=== PATIENT | male | born 1930 | race Caucasian/White ===

== ENCOUNTER 2018-08-23 14:18 | Emergency (ER) | payer BC ==
--- NOTE | 2018-08-23 14:27 | ER Report ---
History and Physical Time Seen By MD: 14:27 (SELVIN ENAMORADO DO) HPI/ROS CHIEF COMPLAINT: Shortness breath, chest discomfort HISTORY OF PRESENT ILLNESS: Patient is an 88-year-old male here with complaints of exertional dyspnea, chest discomfort which is midsternal, sharp in distribution, intermittent worsened with exertion. 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 Denies prior history of coronary artery disease but he does have a history of hypertension, hyperlipidemia on a statin and metoprolol. Patient started on Thursday with chest pains worsened with exertion. Patient did have a stress test several years ago which was unremarkable. Patient was noted to be hypoxic at time of evaluation by reports that his chest pains have dissipated o mireya the past day. Patient does have a remote history of smoking for approximately 25 years but he reportedly quit many years ago. REVIEW OF SYSTEMS: Constitutional: No fever, no chills. Eyes: No discharge. ENT: No sore throat. Cardiovascular: + mid sternal chest pain, no palpitations. Respiratory: No cough, + shortness of breath. Gastrointestinal: No abdominal pain, no vomiting. Genitourinary: No hematuria. Musculoskeletal: No back pain. Skin: No rashes. Neurological: No headache. (SELVIN ENAMORADO DO) Allergies: Coded Allergies: No Known Drug Allergies (Unverified , 08/23/18) Home Meds Reported Medications Simvastatin (SIMVASTATIN) 20 Mg Tablet, 20 MG PO HS, TAB 08/23/18 Metoprolol Succinate (METOPROLOL SUCCINATE) 25 Mg Tab.er.24h, 1 TAB PO QDAY, TAB 08/23/18 Aspirin (ASPIRIN) 81 Mg Tab.chew, 81 MG PO QDAY, TAB.CHEW 08/23/18 Constitutional Vital Sign - Last 24 Hours 08/23/18 08/23/18 08/23/18 08/23/18 14:20 14:22 14:22 14:23 Temp 98.3 Pulse 88 88 Resp 20 B/P (MAP) 193/115 197/115 (142) Pulse Ox 64 71 O2 Delivery Room Air O2 Flow Rate 5.0 08/23/18 08/23/18 08/23/18 08/23/18 14:23 14:24 14:24 14:25 Pulse 98 89 B/P (MAP) 197/115 (142) Pulse Ox 70 84 90 08/23/18 08/23/18 08/23/18 08/23/18 14:27 14:27 14:29 14:30 Pulse 90 Resp 20 B/P (MAP) 184/104 (130) 184/104 (130) 176/108 (130) Pulse Ox 91 08/23/18 08/23/18 08/23/18 08/23/18 14:30 14:34 14:39 14:44 Pulse 90 90 90 Resp 19 21 11 B/P (MAP) 176/108 (130) Pulse Ox 86 88 96 08/23/18 08/23/18 08/23/18 08/23/18 14:48 14:48 14:49 15:00 Pulse 88 91 Resp 19 13 B/P (MAP) 159/95 (116) 159/95 (116) 146/95 (112) Pulse Ox 93 92 08/23/18 08/23/18 08/23/18 08/23/18 15:18 15:30 15:48 15:53 Pulse 88 84 ??? Resp 23 46 B/P (MAP) 154/88 (110) Pulse Ox 94 95 08/23/18 08/23/18 08/23/18 08/23/18 16:00 16:23 16:30 16:53 Pulse 80 80 Resp 24 B/P (MAP) ???/??? (1665) 177/99 (125) Pulse Ox 94 08/23/18 08/23/18 08/23/18 08/23/18 17:00 17:23 17:30 17:35 Pulse 83 79 Resp 20 20 B/P (MAP) 159/92 (114) 163/89 (113) Pulse Ox 96 96 08/23/18 08/23/18 08/23/18 08/23/18 18:00 18:05 18:35 19:00 Pulse 77 92 Resp 14 B/P (MAP) 169/92 (117) 200/103 (135) 153/108 (123) Pulse Ox 96 08/23/18 08/23/18 08/23/18 08/23/18 19:05 19:30 19:30 20:00 Pulse 102 90 91 Resp 25 31 15 B/P (MAP) 146/88 (107) 146/88 (107) 118/103 (108) Pulse Ox 90 98 94 (ONUR BROWN MD) Physical Exam General Appearance: The patient is alert, has no immediate need for airway protection and no signs of toxicity. Uncomfortable appearing Eyes: Pupils equal and round no pallor or injection. ENT, Mouth: Mucous membranes are moist. Respiratory: There are no retractions, lungs are clear to auscultation. Cardiovascular: Regular rate and rhythm, No JVD Gastrointestinal: Abdomen is soft and non tender, no masses, bowel sounds normal. Neurological: No focal deficits Skin: Warm and dry, no rashes. Musculoskeletal: Neck is supple non tender. Extremities are nontender, nonswollen and have full range of motion. DIFFERENTIAL DIAGNOSIS: After history and physical exam differential diagnosis was considered for shortness of breath including but not limited to pulmonary infectious process, COPD, asthma, pulmonary embolus and congestive heart failure. (SELVIN ENAMORADO DO) Medical Decision Making Data Points Result Diagram: 08/23/18 1518 08/23/18 1518 Laboratory Hematology Test 08/23/18 15:18 08/23/18 17:18 Red Blood Count 4.42 M/uL (4.00-5.60) Mean Corpuscular Volume 92.7 fL (80.0-96.0) Mean Corpuscular Hemoglobin 31.4 pg (26.0-33.0) Mean Corpuscular Hemoglobin Concent 33.9 g/dL (32.0-36.0) Red Cell Distribution Width 13.6 % (11.5-14.5) Mean Platelet Volume 6.8 fL (7.2-11.1) Neutrophils (%) (Auto) 76.6 % (39.4-72.5) Lymphocytes (%) (Auto) 11.6 % (17.6-49.6) Monocytes (%) (Auto) 9.4 % (4.1-12.4) Eosinophils (%) (Auto) 1.6 % (0.4-6.7) Basophils (%) (Auto) 0.8 % (0.3-1.4) Nucleated RBC Relative Count (auto) 0.0 /100WBC Neutrophils # (Auto) 8.7 K/uL (2.0-7.4) Lymphocytes # (Auto) 1.3 K/uL (1.3-3.6) Monocytes # (Auto) 1.1 K/uL (0.3-1.0) Eosinophils # (Auto) 0.2 K/uL (0.0-0.5) Basophils # (Auto) 0.1 K/uL (0.0-0.1) Nucleated RBC Absolute Count (auto) 0.00 K/uL Prothrombin Time 12.8 seconds (12.0-14.4) Prothromb Time International Ratio 0.96 Activated Partial Thromboplast Time 24 seconds (23-35) Blood Gas Patient Temperature 98.3 DEGREES Venous Blood pH 7.42 (7.31-7.41) Venous Blood Partial Pressure CO2 39 mmHg Venous Blood Partial Pressure O2 44 mmHg Venous Blood HCO3 26 mmol/L Venous Blood Oxygen Saturation 81 % Venous Blood Base Excess 1 mmol/L Oxygen Liters/Minute 5l Sodium Level 138 mmol/L (137-145) Potassium Level 4.1 mmol/L (3.5-5.0) Chloride Level 102 mmol/L (98-107) Carbon Dioxide Level 28 mmol/L (22-30) Blood Urea Nitrogen 21 mg/dl (9-21) Creatinine 1.00 mg/dl (0.66-1.25) Glomerular Filtration Rate Calc > 60.0 Random Glucose 97 mg/dl (75-110) Calcium Level 9.5 mg/dl (8.4-10.2) Total Bilirubin 0.7 mg/dl (0.2-1.3) Aspartate Amino Transf (AST/SGOT) 25 U/L (0-35) Alanine Aminotransferase (ALT/SGPT) 20 U/L (0-56) Alkaline Phosphatase 69 U/L (0-126) B-Type Natriuretic Peptide 361 pg/ml (0-100) Total Protein 7.1 g/dl (6.3-8.2) Albumin 4.1 g/dl (3.5-5.0) Troponin I 0.023 ng/ml Chemistry Test 08/23/18 15:18 08/23/18 17:18 White Blood Count 11.4 k/uL (4.5-11.0) Red Blood Count 4.42 M/uL (4.00-5.60) Hemoglobin 13.9 g/dL (14.0-18.0) Hematocrit 41.0 % (42.0-52.0) Mean Corpuscular Volume 92.7 fL (80.0-96.0) Mean Corpuscular Hemoglobin 31.4 pg (26.0-33.0) Mean Corpuscular Hemoglobin Concent 33.9 g/dL (32.0-36.0) Red Cell Distribution Width 13.6 % (11.5-14.5) Platelet Count 225 K/uL (150-450) Mean Platelet Volume 6.8 fL (7.2-11.1) Neutrophils (%) (Auto) 76.6 % (39.4-72.5) Lymphocytes (%) (Auto) 11.6 % (17.6-49.6) Monocytes (%) (Auto) 9.4 % (4.1-12.4) Eosinophils (%) (Auto) 1.6 % (0.4-6.7) Basophils (%) (Auto) 0.8 % (0.3-1.4) Nucleated RBC Relative Count (auto) 0.0 /100WBC Neutrophils # (Auto) 8.7 K/uL (2.0-7.4) Lymphocytes # (Auto) 1.3 K/uL (1.3-3.6) Monocytes # (Auto) 1.1 K/uL (0.3-1.0) Eosinophils # (Auto) 0.2 K/uL (0.0-0.5) Basophils # (Auto) 0.1 K/uL (0.0-0.1) Nucleated RBC Absolute Count (auto) 0.00 K/uL Prothrombin Time 12.8 seconds (12.0-14.4) Prothromb Time International Ratio 0.96 Activated Partial Thromboplast Time 24 seconds (23-35) Blood Gas Patient Temperature 98.3 DEGREES Venous Blood pH 7.42 (7.31-7.41) Venous Blood Partial Pressure CO2 39 mmHg Venous Blood Partial Pressure O2 44 mmHg Venous Blood HCO3 26 mmol/L Venous Blood Oxygen Saturation 81 % Venous Blood Base Excess 1 mmol/L Oxygen Liters/Minute 5l Glomerular Filtration Rate Calc > 60.0 Calcium Level 9.5 mg/dl (8.4-10.2) Total Bilirubin 0.7 mg/dl (0.2-1.3) Aspartate Amino Transf (AST/SGOT) 25 U/L (0-35) Alanine Aminotransferase (ALT/SGPT) 20 U/L (0-56) Alkaline Phosphatase 69 U/L (0-126) B-Type Natriuretic Peptide 361 pg/ml (0-100) Total Protein 7.1 g/dl (6.3-8.2) Albumin 4.1 g/dl (3.5-5.0) Troponin I 0.023 ng/ml Coagulation Test 08/23/18 15:18 Prothrombin Time 12.8 seconds Prothromb Time International Ratio 0.96 Activated Partial Thromboplast Time 24 seconds (ONUR BROWN MD) EKG/Imaging EKG Interpretation PATIENT NAME: MIGUEL FU : [id number] MR: [id number] V: [id number] EXAM DATE: ORDERING PHYSICIAN: SELVIN ENAMORADO TECHNOLOGIST: ARTHUR Test Reason : CP Blood Pressure : / mmHG Vent. Rate : 088 BPM Atrial Rate : 088 BPM P-R Int : 204 ms QRS Dur : 078 ms QT Int : 350 ms P-R-T Axes : 059 -11 -08 degrees QTc Int : 423 ms Normal sinus rhythm Normal ECG No previous ECGs available Referred By: ZACHARIAH Confirmed By: Imaging PATIENT NAME: Miguel Fu : 1930 MR: [id number] V: [id number] EXAM DATE: ORDERING PHYSICIAN: SELVIN ENAMORADO TECHNOLOGIST: Location: [facility] Patient: Miguel Fu : 1930 Visit/Account:[id number] Date of Sevice: 08/23/2018 CHEST SINGLE AP 1515 hours COMPARISON: None. HISTORY: Shortness of breath and chest pain FINDINGS: CARDIAC/VASC: No cardiac silhouette abnormality or cardiomegaly. Unremarkable pulmonary vasculature. MEDIASTINUM: No visible mass or adenopathy. Mild aortic arch calcifications. P rominent pulmonary arteries. LUNGS/PLEURA: No pneumothorax. Coarse diffuse interstitial abnormality which may be due to diffuse bronchial wall thickening. No focal consolidation.. No costophrenic angle blunting to suggest a large effusion. BONES: No fracture or visible bony lesion. OTHER:Negative. IMPRESSION: Coarse diffuse interstitial abnormality which may be due to diffuse bronchial wall thickening. No focal airspace disease in the chest. PATIENT NAME: Miguel Fu DOB: 1930 MR: [id number] V: [id number] EXAM DATE: [id number] ORDERING PHYSICIAN: SELVIN ENAMORADO TECHNOLOGIST: Location: [facility] Patient: Miguel Fu : 1930 Visit/Account:[id number] Date of Sevice: 08/23/2018 CT ANGIOGRAM OF THE CHEST WITH INTRAVENOUS CONTRAST, PE PROTOCOL DATE OF EXAM: 08/23/2018 14:39 COMPARISON: Chest radiograph of the same day. INDICATION: SOB. TECHNIQUE: Contrast enhanced chest CT performed during the injection of 75 ml of Isovue-370. Three-dimensional (MIP) reconstructions were performed. FINDINGS: Negative for pulmonary arterial embolus. Thyroid: Normal Thoracic inlet: No thoracic inlet adenopathy Heart and great vessels: Heart size is within normal limits. Coronary at herosclerosis is prominent, and there is moderate atherosclerosis of the aortic arch. Mediastinum and chelsea: No mediastinal or hilar adenopathy. Lungs and pleura: There is scattered scarring and/or atelectasis as well as fibrotic change at the lung apices. Moderate centrilobular emphysema at the lung apices. Breast and axilla: Unremarkable Bones and soft tissues: No acute osseous abnormality. Diffusely decreased bone density in the thoracic spine. Moderate multilevel degenerative findings. Upper abdomen: Surgically absent gallbladder. IMPRESSION: 1. Negative for pulmonary arterial embolus. 2. Moderate emphysema with reticulation/fibrosis at the lung apices. (SELVIN ENAMORADO DO) ED Course/Re-evaluation ED Course Patient is an 88-year-old male here with complaints of intermittent chest pains especially with exertion since Thursday, shortness breath with exertion after traveling from [facility] in a car which she is delivering to a family member in [place]. Patient reports that symptoms started on Thursday which included midsternal sharp chest pains, persistent shortness breath on exertion. Denies history of COPD. Denies prior history of coronary artery disease though he does have history of hypertension, hyperlipidemia. Patient was found to be hypoxic at time of evaluation. Patient's troponin was low but not negative, likely demand in nature. Delta 2 hour troponin completed and showed no change with a stable level of 0.023. CT imaging showed interstitial lung disease with no signs of pulmonary embolus, pneumonia or effusions. I discussed these findings with the patient and he voiced understanding. Patient will need supplemental oxygen until he is able to return to his home in [place] and will need to be cleared by his PCP at that time. The patient reportedly is flying back thigh airplane which was originally planned for 6 AM out of [place] to [place] however patient will need a flight friendly oxygen source likely in the form of an oxygen concentrator. Patient to be evaluated by respiratory therapy in order to arrange a plan to safely get the patient home with an appropriate means for oxygen delivery. Patient was signed out to Dr. Brown at shift change pending arrangements. Decision to Disposition Date: August 24, 2018 Decision to Disposition Time: 18:00 (SELVIN ENAMORADO DO) ED Course 08/23/2018 6:48:02 pm accepted care of patient at [address] Selvin Enamorado, briefly patient here positioning his grandson from [place] arriving [place] became short of breath and dyspneic. Came to the emergency department was found to have initial room air sats of 65%. Patient had a workup which was unremarkable and didn't on oxygen. We did ambulate the patient without oxygen in the department and he was only able to get approximately 20-25 yards becoming hypoxic in the low 70s. He will return to his room and oxygen was reinitiated. Plan is to have the patient go home with oxygen and then have his grandson drive him to [place] in the morning where he can obtain a concentrator that is approved for TSA so that he may return and dry home to [place]. Decision to Disposition Date: August 23, 2018 Decision to Disposition Time: 20:42 (ONUR BROWN MD) Depart Departure Latest Vital Signs Vital Signs Date Time Temp Pulse Resp B/P (MAP) Pulse Ox O2 Delivery O2 Flow Rate FiO2 08/23/18 20:00 91 15 118/103 (108) 94 08/23/18 14:22 98.3 Room Air 08/23/18 14:22 5.0 (ONUR BROWN MD) Impression: Primary Impression: Dyspnea Additional Impression: Chest discomfort Condition: Improved Disposition: HOME OR SELF-CARE Departure Forms: ER Transition Record, Home Oxygen, Nebulizer RX, Home Oxygen Company Chosen by Patient: [employer] Durable Medical Equipment-Oxygen: Portable Oxygen Gas Reason for Use/Diagnosis: Altitude induced hypoxemia Medications Reconciliation, Patient Portal Information Patient Instructions: Dyspnea (ED) Additional Instructions: Please keep your oxygen on at all times until you're able to be reevaluated by your primary care doctor. Please return immediately if you have recurrent episodes of chest pain, increasing shortness breath, fevers, worsening cough, headaches, motor weakness. Please follow-up with your primary care doctor as soon as possible Problem Qualifiers SELVIN ENAMORADO DO August 23, 2018 14:27 ONUR BROWN MD August 23, 2018 18:49
[2018-08-23] MEDS ORDERED: NS(*) 0.9% 50 ML BAG 50 ML ONE (15:14)
[2018-08-23] MEDS ORDERED: IOPAMIDOL 76% 100 ML INFUS BTL 100 ML ONE (15:14)
[2018-08-23 15:30] LABS: PLATELET COUNT, AUTOMATED 225 K/uL (150-450)
--- NOTE | 2018-08-23 15:34 | RADIOLOGY IMAGING REPORT ---
FACILITY: [facility] [place] PATIENT NAME: Miguel Fu : 1930 MR: [id number] V: [id number] EXAM DATE: ORDERING PHYSICIAN: SELVIN SONI TECHNOLOGIST: Location: [facility] Patient: Miguel Fu : 1930 Visit/Account:[id number] Date of Sevice: 08/23/2018 CHEST SINGLE AP 1515 hours COMPARISON: None. HISTORY: Shortness of breath and chest pain FINDINGS: CARDIAC/VASC: No cardiac silhouette abnormality or cardiomegaly. Unremarkable pulmonary vasculatu re. MEDIASTINUM: No visible mass or adenopathy. Mild aortic arch calcifications. Prominent pulmonary art eries. LUNGS/PLEURA: No pneumothorax. Coarse diffuse interstitial abnormality which may be due to diffuse b ronchial wall thickening. No focal consolidation.. No costophrenic angle blunting to suggest a large effusion. BONES: No fracture or visible bony lesion. OTHER:Negative. IMPRESSION: Coarse diffuse interstitial abnormality which may be due to diffuse bronchial wall thickening. No foc al airspace disease in the chest. Report Dictated By: Jake Walker at 08/23/2018 3:23 PM Report E-Signed By: Jake Walker at 08/23/2018 3:29 PM [id number]
[2018-08-23 15:43] LABS: INR 0.96
--- NOTE | 2018-08-23 16:20 | EKG ---
FACILITY: [facility] [place] PATIENT NAME: KWAKU DAO : [id number] MR: [id number] V: [id number] EXAM DATE: ORDERING PHYSICIAN: SELVIN SONI TECHNOLOGIST: ARTHUR Test Reason : CP Blood Pressure : / mmHG Vent. Rate : 088 BPM Atrial Rate : 088 BPM P-R Int : 204 ms QRS Dur : 078 ms QT Int : 350 ms P-R-T Axes : 059 -11 -08 degrees QTc Int : 423 ms Normal sinus rhythm Normal ECG No previous ECGs available Confirmed by JAELYN CATES ([id number]) on 08/23/2018 8:31:18 PM Referred By: ZACHARIAH Confirmed By:JAELYN CATES
[2018-08-23] MEDS ORDERED: ASPI81TA94 PO (16:37)
[2018-08-23] MEDS ORDERED: SIMV-49 PO (16:37)
[2018-08-23] MEDS ORDERED: METO25TA23 PO (16:37)
--- NOTE | 2018-08-23 16:57 | RADIOLOGY IMAGING REPORT ---
FACILITY: [facility] [place] PATIENT NAME: Miguel Fu : 1930 MR: [id number] V: [id number] EXAM DATE: [id number] ORDERING PHYSICIAN: SELVIN SONI TECHNOLOGIST: Location: [facility] Patient: Miguel Fu : 1930 Visit/Account:[id number] Date of Sevice: 08/23/2018 CT ANGIOGRAM OF THE CHEST WITH INTRAVENOUS CONTRAST, PE PROTOCOL DATE OF EXAM: 08/23/2018 14:39 COMPARISON: Chest radiograph of the same day. INDICATION: SOB. TECHNIQUE: Contrast enhanced chest CT performed during the injection of 75 ml of Isovue-370. Three-d imensional (MIP) reconstructions were performed. FINDINGS: Negative for pulmonary arterial embolus. Thyroid: Normal Thoracic inlet: No thoracic inlet adenopathy Heart and great vessels: Heart size is within normal limits. Coronary atherosclerosis is prominent, and there is moderate atherosclerosis of the aortic arch. Mediastinum and chelsea: No mediastinal or hilar adenopathy. Lungs and pleura: There is scattered scarring and/or atelectasis as well as fibrotic change at the l bennie apices. Moderate centrilobular emphysema at the lung apices. Breast and axilla: Unremarkable Bones and soft tissues: No acute osseous abnormality. Diffusely decreased bone density in the thora cic spine. Moderate multilevel degenerative findings. Upper abdomen: Surgically absent gallbladder. IMPRESSION: 1. Negative for pulmonary arterial embolus. 2. Moderate emphysema with reticulation/fibrosis at the lung apices. One of the following dose optimization techniques was utilized in the performance of this exam: Autom ated exposure control; adjustment of the mA and/or kV according to the patient's size; or use of an i terative reconstruction technique. Specific details can be referenced in the facility's radiology C T exam operational policy. Report Dictated By: Harrison Kaur MD at 08/23/2018 4:38 PM Report E-Signed By: Harrison Kaur MD at 08/23/2018 4:54 PM WSN:[id number]
[2018-08-23 20:00] VITALS: BP 118/103
== END 2018-08-23 20:36 | disposition home or self-care (01) ==
LOC: ER 14:40
DX: R06.00 Dyspnea, unspecified (principal); R07.9 Chest pain, unspecified
CPT/HCPCS: 71045; 71275; 82803; 83880; 84484; 85025; 85610; 85730; 93005; 99284; J7050; Q9967; 82040; 82247; 82310; 82374; 82435; 82565; 82947; 84075; 84132; 84155; 84295; 84450; 84460; 84520